=== PATIENT | female | born 1995 | race Caucasian/White ===

== ENCOUNTER → 2019-06-10 | Outpatient (CLI) | payer BC ==
[2019-06-10 15:44] LABS: HCT 38.1 % (34.0-46.0); HGB 12.9 gm/dL (11.4-16.0); MCH 28.3 pg (25.0-35.0); MCHC 33.8 g/dL (31.0-37.0); Mean Platelet Volume 10.2; Platelet Count 178 k/uL (150-450); RBC 4.54 m/uL (3.80-5.40); RDW 12.7 % (11.5-15.5); WBC 6.2 k/uL (3.8-10.6)
== END | disposition home or self-care (01) ==
LOC: LABWHC1 14:09
PROVIDERS: ATTEND Obstetrics & Gynecology
DX: N64.52 Nipple discharge (principal); R53.83 Other fatigue
CPT/HCPCS: 36415; 84146; 85027

== ENCOUNTER 2020-12-10 10:57 | Emergency (ER) | payer BC ==
[2020-12-10 11:24] VITALS: BP 117/72; PULSE 61; TEMP 97.9
[2020-12-10] MEDS ORDERED: SODIUM CHLORIDE 0.9% 1,000 ML IV STA (11:50)
--- NOTE | 2020-12-10 11:54 | ED ---
Abdominal Pain HPI - General Chief Complaint: Abdominal Pain Stated Complaint: Abd Pain Time Seen by Provider: 12/10/20 11:41 Source: patient Mode of arrival: ambulatory Limitations: no limitations - History of Present Illness Initial Comments: 25-year-old female presenting to the emergency department with a chief complaint of abdominal pain. Patient reports the pain started early this morning pressure went to [facility]. Patient reports she began her menstrual period today. States she began to have sharp pain and lower abdominal region with some radiation to the back that lasted for approximately 30 minutes and now has resolved. States she did have 2 episodes of nonbilious and nonbloody vomiting with no associated diarrhea or constipation. States she still has a bit of nausea and the pain is mostly resolved and is not requesting any symptomatic relief with medication. Patient reports her period was several days late. She is not on control. She denies hematuria, hematochezia or melena. Denies any vaginal discharge, bleeding, itching or foul smell. Denies dysuria, increased urgency or frequency. Patient also reported having right-sided ear pain for the past 5 days. She does have ALLERGIES. No changes to her hearing. - Related Data Home Medications Medication Instructions Recorded Confirmed Etonogestrel/Ethinyl Estradiol 1 each VG Q30D 03/31/14 04/01/14 [Nuvaring Vaginal Ring] Allergies Allergy/AdvReac Type Severity Reaction Status Date / Time peanut Allergy Anaphylaxis Verified 12/10/20 11:21 venom-honey bee Allergy Anaphylaxis Verified 12/10/20 11:21 [bee venom (honey bee)] Review of Systems ROS Statement: Those systems with pertinent positive or pertinent negative responses have been documented in the HPI. ROS Other: All systems not noted in ROS Statement are negative. Past Medical History Additional Past Medical History / Comment(s): HAS BEEN HAVING CONSTANT ABD PAIN, N & D SINCE JAN 2014 History of Any Multi-Drug Resistant Organisms: None Reported Past Surgical History: Cholecystectomy, Tonsillectomy Additional Past Surgical History / Comment(s): BMT Past Anesthesia/Blood Transfusion Reactions: No Reported Reaction Smoking Status: Never smoker Past Alcohol Use History: None Reported Past Drug Use History: None Reported General Exam Limitations: no limitations General appearance: alert, in no apparent distress Head exam: Present: atraumatic, normocephalic, normal inspection Eye exam: Present: normal appearance, PERRL, EOMI Pupils: Present: normal accommodation ENT exam: Present: normal exam, normal oropharynx, mucous membranes moist, TM's normal bilaterally (Fluid behind right ear), normal external ear exam Neck exam: Present: normal inspection, full ROM. Absent: tenderness, lymphadenopathy Respiratory exam: Present: normal lung sounds bilaterally. Absent: respiratory distress Cardiovascular Exam: Present: regular rate, normal rhythm, normal heart sounds. Absent: systolic murmur GI/Abdominal exam: Present: soft, tenderness (Minimal lower abdominal tenderness). Absent: distended Extremities exam: Present: normal inspection, full ROM Back exam: Present: normal inspection, full ROM Neurological exam: Present: alert, oriented X3 Psychiatric exam: Present: normal affect, normal mood Skin exam: Present: warm, dry, intact, normal color Course Vital Signs 12/10/20 11:18 Temperature 97.9 F Pulse Rate 61 Respiratory 16 Rate Blood Pressure 117/72 O2 Sat by Pulse 98 Oximetry Medical Decision Making - Medical Decision Making 25-year-old female presenting to the emergency department with a chief complaint of abdominal pain. On physical examination, minimal lower abdominal tenderness. CBC CMP unremarkable. UA shows hematuria but patient is currently on her menstrual period. Transvaginal ultrasound was obtained to rule out an ovarian torsion. Left ovary appears to be within normal limits. Arterial flow to the right ovary is visualized well. However, there is limited visualization of the venous flow in the right ovary. The imaging was discussed with Dr. Ayala. Patient was advised to follow-up with a power plant electrician. She was only given IV fluids. She had minimal nausea and pain at this time. Return parameters were thoroughly discussed the patient is an attending agreeable. Case discussed with Dr. Ayala. - Lab Data Result diagrams: 12/10/20 12:16 12/10/20 12:16 Lab Results 12/10/20 12/10/20 12/10/20 Range/Units 11:43 12:16 12:16 WBC 9.1 (3.8-10.6) k/uL RBC 4.74 (3.80-5.40) m/uL Hgb 13.8 (11.4-16.0) gm/dL Hct 41.2 (34.0-46.0) % MCV 86.9 (80.0-100.0) fL MCH 29.1 (25.0-35.0) pg MCHC 33.5 (31.0-37.0) g/dL RDW 13.0 (11.5-15.5) % Plt Count 162 (150-450) k/uL MPV 10.2 Neutrophils % 83 % Lymphocytes % 11 % Monocytes % 4 % Eosinophils % 1 % Basophils % 0 % Neutrophils # 7.6 (1.3-7.7) k/uL Lymphocytes # 1.0 (1.0-4.8) k/uL Monocytes # 0.4 (0-1.0) k/uL Eosinophils # 0.1 (0-0.7) k/uL Basophils # 0.0 (0-0.2) k/uL Sodium 138 (137-145) mmol/L Potassium 4.9 (3.5-5.1) mmol/L Chloride 109 H (98-107) mmol/L Carbon Dioxide 22 (22-30) mmol/L Anion Gap 7 mmol/L BUN 7 (7-17) mg/dL Creatinine 0.68 (0.52-1.04) mg/dL Est GFR (CKD-EPI)AfAm >90 (>60 ml/min/1.73 sqM) Est GFR (CKD-EPI)NonAf >90 (>60 ml/min/1.73 sqM) Glucose 92 (74-99) mg/dL Calcium 9.5 (8.4-10.2) mg/dL Total Bilirubin 0.8 (0.2-1.3) mg/dL AST 27 (14-36) U/L ALT 11 (4-34) U/L Alkaline Phosphatase 61 (38-126) U/L Total Protein 7.3 (6.3-8.2) g/dL Albumin 4.6 (3.5-5.0) g/dL Lipase 91 (23-300) U/L Urine Color Light Red Urine Appearance Cloudy H (Clear) Urine pH 7.0 (5.0-8.0) Ur Specific [place] 1.009 (1.001-1.035) Urine Protein Trace H (Negative) Urine Glucose (UA) Negative (Negative) Urine Ketones Negative (Negative) Urine Blood Large H (Negative) Urine Nitrite Negative (Negative) Urine Bilirubin Negative (Negative) Urine Urobilinogen <2.0 (<2.0) mg/dL Ur Leukocyte Esterase Small H (Negative) Urine RBC >182 H (0-5) /hpf Urine WBC 17 H (0-5) /hpf Ur Squamous Epith Cells 2 (0-4) /hpf Urine Bacteria Moderate H (None) /hpf Disposition Clinical Impression: Abdominal pain Disposition: HOME SELF-CARE Condition: Stable Instructions (If sedation given, give patient instructions): Abdominal Pain (ED) Additional Instructions: Please return to the Emergency Department if symptoms worsen or any other concerns. Is patient prescribed a controlled substance at d/c from ED?: No Referrals: None,Stated [Primary Care Provider] - 1-2 days Time of Disposition: 13:24
[2020-12-10 12:17] LABS: Appearance,Urine Cloudy (Clear); Bacteria,Urine Moderate /hpf; Bilirubin,Urine Negative (Negative); Blood,Urine Large (Negative); Color,Urine Light Red; Glucose,Urine (UA) Negative (Negative); Ketones,Urine Negative (Negative); Leukocyte Esterase,Urine Small (Negative); Nitrite,Urine Negative (Negative); Protein,Urine Trace (Negative); RBC,Urine >182 /hpf (0-5); Specific Gravity,Urine 1.009 (1.001-1.035); Squamous Epithelial Cell,Urine 2 /hpf (0-4); Urobilinogen,Urine <2.0 mg/dL (<2.0); WBC,Urine 17 /hpf (0-5)
[2020-12-10 12:22] LABS: Basophils % (A) 0 %; Eosinophils # (A) 0.1 k/uL (0-0.7); Eosinophils % (A) 1 %; HCT 41.2 % (34.0-46.0); HGB 13.8 gm/dL (11.4-16.0); Lymphocytes % (A) 11 %; MCH 29.1 pg (25.0-35.0); MCHC 33.5 g/dL (31.0-37.0); MCV 86.9 fL (80.0-100.0); Mean Platelet Volume 10.2; Monocytes # (A) 0.4 k/uL (0-1.0); Monocytes % (A) 4 %; Neutrophils # (A) 7.6 k/uL (1.3-7.7); Neutrophils % (A) 83 %; Platelet Count 162 k/uL (150-450); RBC 4.74 m/uL (3.80-5.40); WBC 9.1 k/uL (3.8-10.6)
[2020-12-10 12:42] LABS: ALT 11 U/L (4-34); AST 27 U/L (14-36); African American GFR (CKD) >90 (>60 ml/min/1.73 sqM); Albumin 4.6 g/dL (3.5-5.0); Alkaline Phosphatase 61 U/L (38-126); Anion Gap 7 mmol/L; Blood Urea Nitrogen 7 mg/dL (7-17); Calcium 9.5 mg/dL (8.4-10.2); Carbon Dioxide 22 mmol/L (22-30); Chloride 109 mmol/L (98-107); Glucose 92 mg/dL (74-99); Lipase 91 U/L (23-300); Non-African American GFR(CKD) >90 (>60 ml/min/1.73 sqM); Potassium 4.9 mmol/L (3.5-5.1); Sodium 138 mmol/L (137-145); Total Bilirubin 0.8 mg/dL (0.2-1.3); Total Protein 7.3 g/dL (6.3-8.2)
--- NOTE | 2020-12-10 13:09 | US ---
EXAMINATION TYPE: US transvaginal DATE OF EXAM: 12/10/2020 COMPARISON: Understand CLINICAL HISTORY: r/o torsion. Pelvic pain x 1 day TECHNIQUE: Transvaginal ER exam. Date of LMP: 12/10/2020 EXAM MEASUREMENTS: Uterus: 7.5 x 3.8 x 4.7 cm Endometrial Stripe: 0.8 cm Right Ovary: 2.6 x 1.8 x 2.0 cm Left Ovary: 2.6 x 1.9 x 2.9 cm 1. Uterus: anteverted 2. Endometrium: wnl successfully 3. Right Ovary: wnl 4. Left Ovary: wnl Spectral, color and waveform doppler imaging shows good arterial and venous flow within the left ov edmund and good arterial flow within the right ovary, unable to obtain venous flow within the right ovar y. 5. Bilateral Adnexa: wnl 6. Posterior cul-de-sac: free fluid IMPRESSION: Limited venous flow visualization right ovary.
[2020-12-10 14:03] VITALS: RESP 18
== END 2020-12-10 14:04 | disposition home or self-care (01) ==
LOC: EC 10:57
DX: R10.30 Lower abdominal pain, unspecified (principal)
CPT/HCPCS: 36415; 76830; 80053; 81001; 83690; 85025; 87086; 93975; 96360; 99284

== ENCOUNTER 2021-07-15 10:38 | Emergency (ER) | payer BC ==
[2021-07-15 10:43] VITALS: RESP 18
[2021-07-15 11:35] LABS: Basophils % (A) 0 %; Eosinophils % (A) 0 %; HCT 36.8 % (34.0-46.0); HGB 12.6 gm/dL (11.4-16.0); Lymphocytes # (A) 0.2 k/uL (1.0-4.8); Lymphocytes % (A) 5 %; MCH 30.1 pg (25.0-35.0); MCHC 34.2 g/dL (31.0-37.0); MCV 87.8 fL (80.0-100.0); Mean Platelet Volume 9.9; Monocytes # (A) 0.3 k/uL (0-1.0); Monocytes % (A) 6 %; Neutrophils # (A) 4.1 k/uL (1.3-7.7); Neutrophils % (A) 87 %; Platelet Count 152 k/uL (150-450); RBC 4.19 m/uL (3.80-5.40); RDW 13.3 % (11.5-15.5); WBC 4.7 k/uL (3.8-10.6)
[2021-07-15 11:36] VITALS: PULSE 105
[2021-07-15 11:43] LABS: ALT 28 U/L (4-34); AST 43 U/L (14-36); African American GFR (CKD) >90 (>60 ml/min/1.73 sqM); Albumin 3.9 g/dL (3.5-5.0); Alkaline Phosphatase 80 U/L (38-126); Anion Gap 7 mmol/L; Blood Urea Nitrogen 3 mg/dL (7-17); Calcium 8.8 mg/dL (8.4-10.2); Carbon Dioxide 24 mmol/L (22-30); Chloride 100 mmol/L (98-107); Glucose 91 mg/dL (74-99); Magnesium 1.7 mg/dL (1.6-2.3); Non-African American GFR(CKD) >90 (>60 ml/min/1.73 sqM); Potassium 3.8 mmol/L (3.5-5.1); Sodium 131 mmol/L (137-145); Total Bilirubin 0.4 mg/dL (0.2-1.3); Total Protein 7.5 g/dL (6.3-8.2)
[2021-07-15] MEDS ORDERED: ACETAMINOPHEN TAB 500 MG TAB PO STA (11:50)
[2021-07-15 11:51] LABS: Appearance,Urine Clear (Clear); Bacteria,Urine Moderate /hpf; Bilirubin,Urine Negative (Negative); Blood,Urine Negative (Negative); Color,Urine Light Yellow; Glucose,Urine (UA) Negative (Negative); Ketones,Urine Negative (Negative); Leukocyte Esterase,Urine Large (Negative); Mucus,Urine Rare /hpf; Nitrite,Urine Negative (Negative); Protein,Urine Negative (Negative); RBC,Urine 1 /hpf (0-5); Specific Gravity,Urine 1.013 (1.001-1.035); Squamous Epithelial Cell,Urine 2 /hpf (0-4); Urobilinogen,Urine <2.0 mg/dL (<2.0); WBC,Urine 4 /hpf (0-5)
--- NOTE | 2021-07-15 12:02 | ED ---
General Adult HPI - General Chief complaint: Chest Pain Stated complaint: Chest pain, 23 weeks Time Seen by Provider: 07/15/21 10:58 Source: patient Mode of arrival: ambulatory Limitations: no limitations - History of Present Illness Initial comments: She is a 26-year-old female currently 23 weeks presenting with chief complaint of cough and chest discomfort. Symptoms began 24 hours ago, patient has been having sharp chest pains that occur randomly, localized to the center of the chest. Pain is not reproduced with exertion or certain movements. Patient states that nothing causes the pain to come on, it feels random to her. Patient also admits to a hacking cough, she feels phlegm in the throat and chest but is unable to produce it. She is also complaining of a sore throat. Patient has been taking extra strength Tylenol every 6 hours as needed. Patient took it at home Covid test yesterday which was negative. Patient denies wheezing, shortness of breath, abdominal pain, pelvic cramping, bleeding, discharge, nausea, vomiting, diarrhea, constipation, hematochezia, hemoptysis, ear pain, sinus pain. - Related Data Home Medications Medication Instructions Recorded Confirmed Etonogestrel/Ethinyl Estradiol 1 each VG Q30D 03/31/14 04/01/14 [Nuvaring Vaginal Ring] Previous Rx's Medication Instructions Recorded Oseltamivir [Tamiflu] 75 mg PO Q12HR 5 Days #9 cap 07/15/21 Allergies Allergy/AdvReac Type Severity Reaction Status Date / Time peanut Allergy Anaphylaxis Verified 07/15/21 10:39 venom-honey bee Allergy Anaphylaxis Verified 07/15/21 10:39 [bee venom (honey bee)] Review of Systems ROS Statement: Those systems with pertinent positive or pertinent negative responses have been documented in the HPI. ROS Other: All systems not noted in ROS Statement are negative. Past Medical History Additional Past Medical History / Comment(s): HAS BEEN HAVING CONSTANT ABD PAIN, N & D SINCE JAN 2014 History of Any Multi-Drug Resistant Organisms: None Reported Past Surgical History: Cholecystectomy, Tonsillectomy Additional Past Surgical History / Comment(s): BMT, colonoscopy Past Anesthesia/Blood Transfusion Reactions: No Reported Reaction Past Psychological History: Depression Smoking Status: Never smoker Past Alcohol Use History: None Reported Past Drug Use History: None Reported General Exam Limitations: no limitations General appearance: alert, in no apparent distress Head exam: Present: atraumatic, normocephalic, normal inspection Eye exam: Present: normal appearance, PERRL, EOMI. Absent: scleral icterus, conjunctival injection, periorbital swelling ENT exam: Present: normal exam, normal oropharynx, mucous membranes moist Neck exam: Present: normal inspection. Absent: tenderness, meningismus, lymphadenopathy Respiratory exam: Present: normal lung sounds bilaterally. Absent: respiratory distress, wheezes, rales, rhonchi, stridor Cardiovascular Exam: Present: normal rhythm, tachycardia, normal heart sounds. Absent: systolic murmur, diastolic murmur, rubs, gallop, clicks Extremities exam: Present: normal inspection. Absent: pedal edema, calf tenderness Neurological exam: Present: alert, oriented X3, CN II-XII intact Psychiatric exam: Present: normal affect, normal mood Skin exam: Present: warm, dry, intact, normal color. Absent: rash Course Vital Signs 07/15/21 07/15/21 07/15/21 10:39 11:29 14:09 Temperature 98 F 98.2 F Pulse Rate 109 H 105 H 105 H Respiratory 18 18 Rate Blood Pressure 125/80 111/61 O2 Sat by Pulse 100 100 98 Oximetry EKG Findings - EKG Comments: EKG Findings:: Rate of 103. IN interval 47. Suggestive of an S1 Q3 T3 pattern. EKG was shown to and evaluated by Dr. Layne - EKG Results: EKG: interpreted by NIKUNJ EKG shows: tachycardia Medical Decision Making - Medical Decision Making Patient is a 26-year-old female currently 23 weeks presenting with chi ef complaint of cough and chest discomfort. Patient states she has had a hacking cough for 24 hours. This is accompanied by sharp shooting chest pain localized to the center of the chest. She also admits to fever, sore throat, headache. Patient took a home Covid test yesterday which was negative. She has been taking Tylenol Extra Strength every 6 hours as needed. On exam lungs are clear to auscultation, patient is slightly tachycardic, no swelling of the lower extremities or calf tenderness. CBC and CMP are unremarkable. Chest x-ray shows no acute process. 4 flex swab is positive for influenza A. Patient received 1 dose of Tamiflu 75 mg and 1 g of Tylenol here in the ER. heart tones were 157. Patient appears stable for discharge at this time. I educated the patient on supportive treatment, the importance of hydration, and prescribe her a 5 day course of Tamiflu 75 mg twice a day. Follow-up with PCP and MID WIFE in the next 1-2 days. Educated on return parameters and answered all questions. Patient conveyed verbal understanding and agreed to the plan. I discussed this case with my attending Dr. Layne. - Lab Data Result diagrams: 07/15/21 11:23 07/15/21 11:23 Lab Results 07/15/21 07/15/21 07/15/21 Range/Units 11:23 11:23 11:23 WBC 4.7 (3.8-10.6) k/uL RBC 4.19 (3.80-5.40) m/uL Hgb 12.6 (11.4-16.0) gm/dL Hct 36.8 (34.0-46.0) % MCV 87.8 (80.0-100.0) fL MCH 30.1 (25.0-35.0) pg MCHC 34.2 (31.0-37.0) g/dL RDW 13.3 (11.5-15.5) % Plt Count 152 (150-450) k/uL MPV 9.9 Neutrophils % 87 % Lymphocytes % 5 % Monocytes % 6 % Eosinophils % 0 % Basophils % 0 % Neutrophils # 4.1 (1.3-7.7) k/uL Lymphocytes # 0.2 L (1.0-4.8) k/uL Monocytes # 0.3 (0-1.0) k/uL Eosinophils # 0.0 (0-0.7) k/uL Basophils # 0.0 (0-0.2) k/uL Sodium 131 L (137-145) mmol/L Potassium 3.8 (3.5-5.1) mmol/L Chloride 100 (98-107) mmol/L Carbon Dioxide 24 (22-30) mmol/L Anion Gap 7 mmol/L BUN 3 L (7-17) mg/dL Creatinine 0.52 (0.52-1.04) mg/dL Est GFR (CKD-EPI)AfAm >90 (>60 ml/min/1.73 sqM) Est GFR (CKD-EPI)NonAf >90 (>60 ml/min/1.73 sqM) Glucose 91 (74-99) mg/dL Calcium 8.8 (8.4-10.2) mg/dL Magnesium 1.7 (1.6-2.3) mg/dL Total Bilirubin 0.4 (0.2-1.3) mg/dL AST 43 H (14-36) U/L ALT 28 (4-34) U/L Alkaline Phosphatase 80 (38-126) U/L Troponin I <0.012 (0.000-0.034) ng/mL Total Protein 7.5 (6.3-8.2) g/dL Albumin 3.9 (3.5-5.0) g/dL Urine Color Urine Appearance (Clear) Urine pH (5.0-8.0) Ur Specific [place] (1.001-1.035) Urine Protein (Negative) Urine Glucose (UA) (Negative) Urine Ketones (Negative) Urine Blood (Negative) Urine Nitrite (Negative) Urine Bilirubin (Negative) Urine Urobilinogen (<2.0) mg/dL Ur Leukocyte Esterase (Negative) Urine RBC (0-5) /hpf Urine WBC (0-5) /hpf Ur Squamous Epith Cells (0-4) /hpf Urine Bacteria (None) /hpf Urine Mucus (None) /hpf Influenza Type A (PCR) (Not Detectd) Influenza Type B (PCR) (Not Detectd) RSV (PCR) (Not Detectd) SARS-CoV-2 (PCR) (Not Detectd) Group A Strep Rapid (Negative) 07/15/21 07/15/21 07/15/21 Range/Units 11:23 11:23 12:10 WBC (3.8-10.6) k/uL RBC (3.80-5.40) m/uL Hgb (11.4-16.0) gm/dL Hct (34.0-46.0) % MCV (80.0-100.0) fL MCH (25.0-35.0) pg MCHC (31.0-37.0) g/dL RDW (11.5-15.5) % Plt Count (150-450) k/uL MPV Neutrophils % % Lymphocytes % % Monocytes % % Eosinophils % % Basophils % % Neutrophils # (1.3-7.7) k/uL Lymphocytes # (1.0-4.8) k/uL Monocytes # (0-1.0) k/uL Eosinophils # (0-0.7) k/uL Basophils # (0-0.2) k/uL Sodium (137-145) mmol/L Potassium (3.5-5.1) mmol/L Chloride (98-107) mmol/L Carbon Dioxide (22-30) mmol/L Anion Gap mmol/L BUN (7-17) mg/dL Creatinine (0.52-1.04) mg/dL Est GFR (CKD-EPI)AfAm (>60 ml/min/1.73 sqM) Est GFR (CKD-EPI)NonAf (>60 ml/min/1.73 sqM) Glucose (74-99) mg/dL Calcium (8.4-10.2) mg/dL Magnesium (1.6-2.3) mg/dL Total Bilirubin (0.2-1.3) mg/dL AST (14-36) U/L ALT (4-34) U/L Alkaline Phosphatase (38-126) U/L Troponin I (0.000-0.034) ng/mL Total Protein (6.3-8.2) g/dL Albumin (3.5-5.0) g/dL Urine Color Light Yellow Urine Appearance Clear (Clear) Urine pH 6.0 (5.0-8.0) Ur Specific [place] 1.013 (1.001-1.035) Urine Protein Negative (Negative) Urine Glucose (UA) Negative (Negative) Urine Ketones Negative (Negative) Urine Blood Negative (Negative) Urine Nitrite Negative (Negative) Urine Bilirubin Negative (Negative) Urine Urobilinogen <2.0 (<2.0) mg/dL Ur Leukocyte Esterase Large H (Negative) Urine RBC 1 (0-5) /hpf Urine WBC 4 (0-5) /hpf Ur Squamous Epith Cells 2 (0-4) /hpf Urine Bacteria Moderate H (None) /hpf Urine Mucus Rare H (None) /hpf Influenza Type A (PCR) Detected A (Not Detectd) Influenza Type B (PCR) Not Detected (Not Detectd) RSV (PCR) Not Detected (Not Detectd) SARS-CoV-2 (PCR) Not Detected (Not Detectd) Group A Strep Rapid Negative (Negative) - Radiology Data Radiology results: report reviewed Chest x-ray: No acute process Disposition Clinical Impression: Influenza A Disposition: HOME SELF-CARE Condition: Good Instructions (If sedation given, give patient instructions): Influenza (DC) Additional Instructions: Follow-up with PCP and MID WIFE in 1-2 days. Take medication as prescribed. You received 1000 mg of Tylenol @ 12:00pm in the ER today, wait 6 hours before taking additional Tylenol. Report back to ER if any worsening symptoms or new onset alarm symptoms, including but not limited to shortness of breath, leg swelling, chest pain, fever or pain not controlled with Tylenol, abdominal cramping, vaginal bleeding. Prescriptions: Oseltamivir [Tamiflu] 75 mg PO Q12HR 5 Days #9 cap Is patient prescribed a controlled substance at d/c from ED?: No Referrals: None,Stated [Primary Care Provider] - 1-2 days Time of Disposition: 13:58
[2021-07-15 12:09] LABS: Influenza A Detected (Not Detectd); Influenza B Not Detected (Not Detectd)
[2021-07-15] MEDS ORDERED: OSELTAMIVIR 75 MG CAP PO STA (12:22)
--- NOTE | 2021-07-15 12:36 | XR ---
EXAMINATION TYPE: XR chest 2V DATE OF EXAM: 07/15/2021 COMPARISON: None INDICATION: Chest pain TECHNIQUE: Single frontal view of the chest is obtained. FINDINGS: The heart size is normal. The pulmonary vasculature is normal. The lungs are clear. IMPRESSION: 1. No acute pulmonary process.
[2021-07-15 14:10] VITALS: BP 111/61; TEMP 98.2
== END 2021-07-15 14:23 | disposition home or self-care (01) ==
LOC: EC 10:38
DX: O98.512 Other viral diseases complicating pregnancy, second trimester (principal); J09.X2 Influenza due to identified novel influenza A virus with other respiratory manifestations; Z20.822 Contact with and (suspected) exposure to COVID-19; Z91.010 Allergy to peanuts; Z91.030 Bee allergy status; Z3A.23 23 weeks gestation of pregnancy
CPT/HCPCS: 36415; 71046; 80053; 81001; 83735; 84484; 85025; 87081; 87430; 87636; 93005; 99285